=== PATIENT | male | born 1945 | race Caucasian/White ===

== ENCOUNTER 2019-02-21 17:55 | Emergency (ER) | payer OTHER ==
[~2019-02-21] VITALS: Ht 175.3 cm; Wt 102.1 kg
[2019-02-21 19:41] LABS: Basophils # (auto) 0.1 uL; Basophils % (auto) 1.5 % (0.0-2.0); Eosinophils # (auto) 0.3 uL; Eosinophils % (auto) 4.4 % (0.0-7.0); Hematocrit 41.7 % (41.0-53.0); Hemoglobin 13.8 g/dL (13.5-17.5); Lymphocytes # (auto) 2.1 uL; Lymphocytes % (auto) 27.7 % (10.0-50.0); Mean Corpuscular Hemoglobin 29.5 pg (28.0-32.0); Mean Corpuscular Volume 89.4 fL (80.0-100.0); Monocytes # (auto) 0.7 uL; Monocytes % (auto) 9.4 % (0.0-12.0); Neutrophils # (auto) 4.2 uL; Platelet Count (auto) 356 10^3/uL (140-450); Red Blood Cells 4.67 10^6/uL (4.5-5.90); Red Cell Distribution Width 13.9 % (11.8-14.3); White Blood Cell 7.4 10^3/uL (4.4-10.8)
[2019-02-21 19:51] LABS: Albumin 3.2 g/dL (3.4-5.0); Calcium 8.9 mg/dL (8.5-10.1); Potassium 4.6 mmol/L (3.5-5.1)
[2019-02-21 19:55] LABS: BUN/Creatinine Ratio 22.3; Bilirubin, Total 0.2 mg/dL (0.2-1.0); Total Protein 7.5 g/dL (6.4-8.2)
[2019-02-21 21:42] VITALS: BP 124/79
[2019-02-21] MEDS ORDERED: BACITRACIN TOP OINT 1 UD PKG TOP ONE (21:45)
== END 2019-02-21 22:13 | disposition home or self-care (01) ==
LOC: ER 17:55
DX: T81.49XA Infection following a procedure, other surgical site, initial encounter (principal); L76.34 Postprocedural seroma of skin and subcutaneous tissue following other procedure; Y83.9 Surgical procedure, unspecified as the cause of abnormal reaction of the patient, or of later complication, without mention of misadventure at the time of the procedure; I10 Essential (primary) hypertension
CPT/HCPCS: 36415; 76881; 80053; 83605; 85025; 87040

== ENCOUNTER 2019-02-24 08:01 | Emergency (ER) | payer OTHER ==
[~2019-02-24] VITALS: Ht 175.3 cm; Wt 102.1 kg
[2019-02-24] MEDS ORDERED: cefTRIAXone W LIDOCAINE 1 GM IM IM ONE (10:30)
[2019-02-24] MEDS ORDERED: CLINDAMYCIN 600 MG/4 ML VL IM ONE (10:30)
[2019-02-24] MEDS ORDERED: cefTRIAXone SOD 1,000 MG VL ONE (11:26)
[2019-02-24 13:38] VITALS: BP 129/77
== END 2019-02-24 13:42 | disposition home or self-care (01) ==
LOC: ER 08:01
DX: L03.114 Cellulitis of left upper limb (principal); I48.91 Unspecified atrial fibrillation
CPT/HCPCS: 96372; 99283; J0696

== ENCOUNTER 2024-11-06 09:32 | Outpatient (CLI) | payer OTHER ==
[~2024-11-06] VITALS: Ht 175.3 cm; Wt 99.8 kg
[2024-11-06] MEDS ORDERED: ADENOSINE 90 MG/30 ML INJ IV ONE (10:54)
[2024-11-06] MEDS ORDERED: ADENOSINE 84 MG in GIVE UN-DILUTED 0 ML IV ONE (12:00)
== END 2024-11-06 17:00 | disposition home or self-care (01) ==
LOC: Rad HDHVI 09:32
PROVIDERS: ATTEND Internal Medicine Cardiovascular Disease
DX: I49.3 Ventricular premature depolarization (principal); I11.0 Hypertensive heart disease with heart failure; I50.33 Acute on chronic diastolic (congestive) heart failure; I48.91 Unspecified atrial fibrillation; R94.31 Abnormal electrocardiogram [ECG] [EKG]; E78.00 Pure hypercholesterolemia, unspecified; E11.40 Type 2 diabetes mellitus with diabetic neuropathy, unspecified; J44.9 Chronic obstructive pulmonary disease, unspecified; R07.89 Other chest pain; R00.2 Palpitations
CPT/HCPCS: 78452; 93017; A9500; J0153

== ENCOUNTER 2024-11-20 14:59 | Outpatient (CLI) | payer OTHER ==
[2024-11-20 15:53] LABS: Urine Protein, UAD 1+ (Negative)
[2024-11-20 15:56] LABS: Hematocrit 44.4 % (41.0-53.0); Hemoglobin 15.2 g/dL (13.5-17.5); Mean Corpuscular Hemoglobin 30.3 pg (28.0-32.0); Mean Corpuscular Volume 88.6 fL (80.0-100.0); Nucleated Red Blood Cells % 0.1 %
[2024-11-20 16:17] LABS: Alanine Aminotransferase 13 U/L (7-40); Albumin 4.2 g/dL (3.2-4.8); Alkaline Phosphatase 62 U/L (46-116); Anion Gap 10 (5-15); BUN/Creatinine Ratio 13.5 (10.0-20.0); Bilirubin, Direct 0.2 mg/dL (<0.3); Blood Urea Nitrogen 18 mg/dL (9-23); Calcium 10.0 mg/dL (8.7-10.4); Carbon Dioxide 26 mmol/L (20-31); Chloride 105 mmol/L (98-107); Cholesterol 100 mg/dL (< 200); Glucose 105 mg/dL (74-106); HDL Cholesterol 42 mg/dL (40-59); Potassium 4.6 mmol/L (3.5-5.1); Sodium 141 mmol/L (136-145); Total Protein 7.0 g/dL (5.7-8.2); Triglycerides 77 mg/dL (< 150)
[2024-11-20 16:18] LABS: Bilirubin, Total 0.5 mg/dL (0.2-1.0)
== END 2024-11-20 17:00 | disposition home or self-care (01) ==
LOC: LAB 14:59
PROVIDERS: ATTEND Internal Medicine Cardiovascular Disease
DX: C61 Malignant neoplasm of prostate (principal); I10 Essential (primary) hypertension; E11.9 Type 2 diabetes mellitus without complications; E55.9 Vitamin D deficiency, unspecified; D64.9 Anemia, unspecified; R00.2 Palpitations
CPT/HCPCS: 36415; 80048; 80061; 80076; 81003; 83036; 84153; 84403; 84443; 85025

== ENCOUNTER → 2024-12-05 | Outpatient (CLI) | payer OTHER ==
[~2024-12-05] MED LIST: IOHEXOL 350 MG/ML 100ML IJ ONE
[2024-12-05 13:35] VITALS: BP 146/69; PULSE 74; RESP 20; O2SAT 98
[2024-12-05 13:57] VITALS: BP 147/79; PULSE 92; RESP 20; O2SAT 98
--- NOTE | 2024-12-05 15:15 | DVH ---
Procedure: CT CHEST WITH CONTRAST Reason for study/Clinical History: SOB Comparison Study: None Exam Date: 12/05/2024 01:42 PM Radiation Dose Information: CT Dose: CTDI volume is 15.98 mGy. Dose-length product is 615.08 mGy*cm TECHNIQUE: After the uneventful administration of intravenous contrast intravenously, CT imaging was performed through the chest. Coronal and sagittal reformations were performed by the technologist. FINDINGS: Lower Neck: Visualized portions of the thyroid gland are unremarkable. Aorta and Vasculature: Normal caliber of thoracic aorta. Lymph Nodes: No enlarged intrathoracic lymph nodes. Mediastinum: Heart size is normal. There is no pericardial effusion. The esophagus is unremarkable. Lungs: No focal consolidation, pleural effusion or significant pneumothorax. No suspicious pulmonary nodule or mass. Musculoskeletal: No acute osseous abnormality. Upper abdomen: Limited portions of the upper abdomen are unremarkable. IMPRESSION: No evidence of acute intrathoracic abnormality identified. All CT scans at this medical facility are performed using dose modulation techniques as appropriate t o a performed exam including the following: Automated exposure control was utilized; adjustment of th e MA and/or KV according to patient size; and use of iterative reconstruction technique.
--- NOTE | 2024-12-05 15:16 | DVH ---
EXAM: CT CT R SHOULDER WO CONTRAST INDICATION: SHOULDER PAIN EXAM DATE: 12/05/2024 01:38 PM COMPARISON: None TECHNIQUE: Multiple axial CT images of the right shoulder were obtained using bone algorithm. Axial a nd coronal reformatting was done. Bone and soft tissue windows were reviewed. Coronal images are limited and do not include the entire right shoulder. Radiation Dose Information: CT Dose: CTDI volume is 26.03 mGy. Dose-length product is 533.59 mGy*cm Findings/Impression: There is no evidence of an acute fracture, dislocation, blastic, or lytic lesions. Moderate degenerative changes of the glenohumeral joint and humeral head. No radiopaque foreign bodies. No joint effusion or superficial soft tissue abnormalities.
== END | disposition home or self-care (01) ==
LOC: Rad HDHVI 13:04
PROVIDERS: ATTEND Internal Medicine Cardiovascular Disease
DX: M19.011 Primary osteoarthritis, right shoulder (principal); R06.02 Shortness of breath; M25.511 Pain in right shoulder
CPT/HCPCS: 71260; 73200; G0463; Q9967

== ENCOUNTER 2025-02-28 | Inpatient (IN) | payer OTHER ==
[~2025-02-28] VITALS: Ht 175.3 cm; Wt 99.2 kg
[2025-02-28 00:35] LABS: Hematocrit 39.6 % (41.0-53.0); Hemoglobin 13.3 g/dL (13.5-17.5); Mean Corpuscular Hemoglobin 29.6 pg (28.0-32.0); Mean Corpuscular Volume 88.3 fL (80.0-100.0); Nucleated Red Blood Cells % 0.0 %
--- NOTE | 2025-02-28 00:43 | ECG ---
[facility] Test Date: 2025-02-28 Test Time: 00:07:27 Pat Name: HUNTER ALARCON Department: Room: 0220T Gender: M Zoo Director: ALINE : 1945 Requested By: SNEHAL NANCE Order Number: [id number] Reading MD: Rahul Mustafa Measurements Intervals [place] Rate: 106 P: 0 TX: 0 QRS: 79 QRSD: 77 T: -55 QT: 289 QTc: 384 Interpretive Statements Incomplete analysis due to missing data in precordial lead(s) Atrial fibrillation Borderline repolarization abnormality Baseline wander in lead(s) V2 Missing lead(s): V4 Electronically Signed On 03-04-2025 14:23:33 PDT by Rahul Mustafa Please click the below link to view image of tracing.
[2025-02-28 01:00] LABS: Chloride 103 mmol/L (98-107); Potassium 4.4 mmol/L (3.5-5.1)
[2025-02-28 01:01] LABS: Anion Gap 11 (5-15); Carbon Dioxide 22 mmol/L (20-31)
[2025-02-28 01:02] LABS: Calcium 9.2 mg/dL (8.7-10.4)
--- NOTE | 2025-02-28 01:04 | DVH ---
CHEST RADIOGRAPH Indication: cp Technique: Single frontal view of the chest was obtained COMPARISON: CT CHEST WITH CONTRAST on DOS: 12/05/24, NM CARDIOLITE W/O TREADMILL on DOS: 11/06/24, US E CHO 2D MODE CARDIAC DOP on DOS: 10/31/24 FINDINGS: Lines and Tubes: None Lungs: Small right pleural effusion. Minimal Bibasilar pulmonary airspace disease. No evidence of fo jaja consolidation. No pneumothorax. Cardiomediastinal contours: Unremarkable Bones: Unremarkable. Left glenohumeral and acromion hardware status post arthroplasty. IMPRESSION: 1. Small right pleural effusion. 2. Minimal bibasilar pulmonary airspace disease.
[2025-02-28 01:07] LABS: BUN/Creatinine Ratio 18.2 (10.0-20.0); Blood Urea Nitrogen 22 mg/dL (9-23)
[2025-02-28 01:18] LABS: Glucose 131 mg/dL (74-106); Sodium 136 mmol/L (136-145)
--- NOTE | 2025-02-28 01:21 | ED.PDOC ---
HPI Comments 80 year old male presents to the ED with a chief compliant of chest pain onset 1 hour prior to ED arrival. Patient states he began experiencing constant and pounding, RT sided chest pain for the past hour radiates to RT shoulder, RT arm. Patient states he has experienced RT shoulder pain for the past 5 years, after receiving COVID vaccination. Patient has an appointment with his manager new product yesterday, was cancelled. PMhx a-fib. Denies shortness of breath, dizziness, headache, fever, chills, cough, cold, congestion. No other symptoms or modifying factors present at this time. Chief Complaint: Chest Pain Time Seen by MD: 00:50 Primary Care Provider: XIOMARA King Notes: Medications, Allergies Allergies: Coded Allergies: NO KNOWN ALLERGIES (Unverified , 02/21/19) Home Meds Reported Medications Baclofen (Baclofen) 20 Mg Tab, 10 MG PO BID, TAB 02/28/25 Metoprolol Succinate (Metoprolol Succinate Er) 25 Mg Tab, 1 TAB PO DAILY 02/28/25 Tamsulosin Hcl (Tamsulosin Hcl) 0.4 Mg Cap, 2 CAP PO DAILY 02/28/25 Digoxin (Digoxin) 250 Mcg Tab, 1 TAB PO DAILY 02/28/25 Finasteride (Finasteride) 5 Mg Tab, 1 TAB PO DAILY 02/28/25 Information Source: Patient Mode of Arrival: Ambulatory Severity: Moderate Timing: Hours Duration: Since onset Prehospital treatment: None Location: Chest (R) Radiation: Shoulder (R), Arm (R) Quality: Other (pounding) Onset: At Rest Cardiac Risk Factors: None PE Risk Factors: None History of: None Modifying Factors: Nothing Vital Signs Vital Signs Date Time Temp Pulse Resp B/P (MAP) Pulse Ox O2 Delivery O2 Flow Rate FiO2 02/28/25 03:11 107 02/28/25 00:02 98.0 18 127/55 93 98.0 Physical Exam PHYSICAL EXAM: General: Awake, alert and oriented. No acute distress. Skin: Skin in warm, dry and intact. Appropriate color for ethnicity. HEENT: The head is normocephalic and atraumatic. Conjunctivae are clear without exudates or hemorrhage. Sclera is non-icteric. EOM are intact. No signs of nystagmus. Eyelids are normal in appearance without swelling or lesions. Oral mucosa is pink and moist Neck: The neck is supple with normal range of motion. No JVD. Cardiac: Heart rate and rhythm are normal. No murmurs, gallops, or rubs are auscultated. Respiratory: No signs of respiratory distress. Lung sounds are clear in all lobes bilaterally without rales, rhonchi, or wheezes. Abdominal: Abdomen is soft, non-tender without distention, guarding or rigidity. Bowel sounds are present and normoactive in all four quadrants. Extremities: Upper and lower extremities are atraumatic in appearance without de formity or edema. Neurological: The patient is awake, alert and oriented to person, place, and time with normal speech. Speech is clear. There is no facial asymmetry. Psychiatric: Appropriate mood and affect. Good judgement and insight. Review of Systems: REVIEW OF SYSTEMS: As stated in HPI Past Medical History PAST MEDICAL HISTORY: AFIB Surgical History: Denies all surgeries Family History Family History: Reviewed,noncontributory to illness Social History Smoker: Non-Smoker Alcohol: Denies ETOH Use Drugs: Denies Drug Use Lives In: Home EKG EKG : Pulse Rate (adult): 106 Cardiac Rhythm: Afib Was a procedure done? Was a procedure done?: No CP Differential Dx Differential Diagnosis: Other (Differential diagnoses considered include acute ischemic coronary syndrome, aortic dissection, cardiac tamponade, mediastinitis, pulmonary embolus, pneumothorax, tension pneumothorax, esophageal rupture, coronary artery vasospasm, myocarditis, pericarditis, pneumonia, pulmonary edema, esophageal tear, pancreatitis, aortic stenosis, dilated cardiomyopathy, hypertrophic cardiomyopathy, mitral valve prolapse, malignancy, pleuritis, pneumomediastinum, primary pulmonary hypertension, cholecystitis, esophageal spasm, esophagus, gastritis, GERD, peptic ulcer disease, costochondritis, fibromyalgia, rib fracture, herpes zoster, radicular syndromes, thoracic outlet syndrome, somatization.) X-Ray, Labs, Meds, VS Vital Signs Date Time Temp Pulse Resp B/P (MAP) Pulse Ox O2 Delivery O2 Flow Rate FiO2 02/28/25 03:11 107 02/28/25 03:01 85 02/28/25 01:33 111 02/28/25 01:21 106 02/28/25 00:07 106 02/28/25 00:02 98.0 114 18 127/55 93 98.0 Lab Test 02/28/25 03:23 02/28/25 01:30 02/28/25 00:24 Range/Units Troponin I High Sensitivity 9 10 9 </=54 ng/L White Blood Count 15.3 H 4.4-10.8 10^3/uL Red Blood Count 4.49 L 4.5-5.90 10^6/uL Hemoglobin 13.3 L 13.5-17.5 g/dL Hematocrit 39.6 L 41.0-53.0 % Mean Corpuscular Volume 88.3 80.0-100.0 fL Mean Corpuscular Hemoglobin 29.6 28.0-32.0 pg Mean Corpuscular Hemoglobin Concent 33.5 32.0-36.0 g/dL Red Cell Distribution Width 14.9 H 11.8-14.3 % Platelet Count 183 140-450 10^3/uL Mean Platelet Volume 7.0 6.9-10.8 fL Neutrophils (%) (Auto) 77.2 37.0-80.0 % Lymphocytes (%) (Auto) 8.4 L 10.0-50.0 % Monocytes (%) (Auto) 13.9 H 0.0-12.0 % Eosinophils (%) (Auto) 0.0 0.0-7.0 % Basophils (%) (Auto) 0.5 0.0-2.0 % Neutrophils # (Auto) 11.8 H 1.6-8.6 10 ^3/uL Lymphocytes # (Auto) 1.3 0.4-5.4 10 ^3/uL Monocytes # (Auto) 2.1 H 0-1.3 10 ^3/uL Eosinophils # (Auto) 0 0-0.8 10 ^3/uL Basophils # (Auto) 0.1 0-0.2 10 ^3/uL Nucleated Red Blood Cells 0.0 % Sodium Level 136 136-145 mmol/L Potassium Level 4.4 3.5-5.1 mmol/L Chloride Level 103 98-107 mmol/L Carbon Dioxide Level 22 20-31 mmol/L Anion Gap 11 5-15 Blood Urea Nitrogen 22 9-23 mg/dL Creatinine 1.21 0.700-1.30 mg/dL Glomerular Filtration Rate Calc 61 >90 mL/min BUN/Creatinine Ratio 18.2 10.0-20.0 Serum Glucose 131 H 74-106 mg/dL Calcium Level 9.2 8.7-10.4 mg/dL B-Type Natriuretic Peptide 185.86 0-100 pg/mL Current Medications Medications (Trade) Dose Ordered Sig/Jenna Route Start Time Stop Time Status Last Admin Ceftriaxone Sodium 50 ml @ 100 mls/hr ONCE ONCE IV 02/28/25 04:15 02/28/25 04:44 DC 02/28/25 07:55 [place] [id number] Ph: [phone] DIAGNOSTIC IMAGING Diagnostic Imaging Report : [id number] Signed PATIENT: HUNTER ALARCON ACCT: [id number] UNIT: [id number] : 1945 LOC: ER ROOM / BED: / AGE / SEX: 80 / M ADM STATUS: REG ER SERVICE ORDERING PHYSICIAN: SNEHAL NANCE MD PROCEDURE(s): CXR1 - CHEST XRAY 1 VIEW REASON: cp ORDER NUMBER(s): [id number], ACCESSION NUMBER(s): [id number] CHEST RADIOGRAPH Indication: cp Technique: Single frontal view of the chest was obtained COMPARISON: CT CHEST WITH CONTRAST on DOS: 12/05/24, NM CARDIOLITE W/O TREADMILL on DOS: 11/06/24, US ECHO 2D MODE CARDIAC DOP on DOS: 10/31/24 FINDINGS: Lines and Tubes: None Lungs: Small right pleural effusion. Minimal Bibasilar pulmonary airspace disease. No evidence of focal consolidation. No pneumothorax. Cardiomediastinal contours: Unremarkable Bones: Unremarkable. Left glenohumeral and acromion hardware status post arthroplasty. IMPRESSION: 1. Small right pleural effusion. 2. Minimal bibasilar pulmonary airspace disease. ATED BY: DARIAN LANE MD DICTATED DATE/TIME: 02/28/25100 SIGNED BY: DARIAN LANE MD SIGNED DATE/TIME: 02/28/25100 CC: Time of 1ST Reevaluation: 01:20 Reevaluation 1ST: Unchanged Patient Education/Counseling: Diagnosis, Treatment, Need For Follow Up Family Education/Counseling: No Family Present SEPSIS Sepsis Screen Date sepsis recognized/suspect: Feb 28, 2025 Time Sepsis recognized/suspect: 0005 Recent Procedure: No On Antibiotic Therapy: No Respiratory Rate >20: No Heart Rate >90: No Temp<36 C (96.8 F) or >38.3 C: No SBP <90 or MAP <65 mmHG: No New Acute Mental Status Change: No Is the patient on CPAP, BIPAP,: No Physician Orders Chest Xray 1 View (02/28/25 00:15) Vital Signs Q1HR (02/28/25 00:15) Saline Lock (02/28/25 00:15) Oil Recovery Operator (02/28/25 ) Ceftriaxone 1gm/50ml (Rocephin) (02/28/25 09:00) Admit (02/28/25 06:52) Allergies (02/28/25 06:52) Code Status (02/28/25 06:52) Ondansetron Hcl (Zofran) (02/28/25 07:00) Enoxaparin Sodium (Lovenox) (02/28/25 10:00) Complete Blood Count (03/01/25 04:00) Comprehensive Metabolic Panel (03/01/25 04:00) Cardiac Diet-2gna,Lofat,Lochol (02/28/25 Breakfast) Echo 2d Mode Cardiac Dop (02/28/25 06:52) Acetaminophen Tablet (Tylenol Tablet) (02/28/25 07:00) Nitroglycerin Sublingual (Ntrostat Subli (02/28/25 07:00) Morphine Sulfate Injection (02/28/25 07:00) Stat Ekg For Chest Pain (02/28/25 06:52) Notify Md Of Changes From Base (02/28/25 06:52) Firearms Assembly Supervisor For 24 Hours (02/28/25 06:52) Emergency Dysrhythmia Protocol (02/28/25 06:52) Rhythm Strips Once Every Shift (02/28/25 06:52) Oxygen By Nasal Cannula (02/28/25 06:52) Vital Signs Date Time Temp Pulse Resp B/P (MAP) Pulse Ox O2 Delivery O2 Flow Rate FiO2 02/28/25 03:11 107 02/28/25 03:01 85 02/28/25 01:33 111 02/28/25 01:21 106 02/28/25 00:07 106 02/28/25 00:02 98.0 114 18 127/55 93 98.0 Laboratory Tests Test 02/28/25 00:24 White Blood Count 15.3 10^3/uL (4.4-10.8) H Departure 1 Departure Time of Disposition: 04:04 Impression: Primary Impression: Chest pain Disposition: ADMITTED INPATIENT Condition: Stable Comments MDM: 80-year-old male with right-sided chest pain multiple risk factors. We will admit for suspected pneumonia and ongoing chest pain Extensive evaluation was performed in attempt to identify or rule out: (See differential diagnosis section) The following tests were ordered, and results were reviewed by me and discussed with patient: (See diagnostic results section) The following test were independently interpreted by me: EKG Decision regarding hospitalization or escalation of hospital level of care: Risk and benefits of admission for further treatment of patient's condition was considered. Due to patient's current clinical condition, high risk of decline and poor outcome if discharged and need for further inpatient management and monitoring, patient will be admitted to the hospital. Critical Care Note Critical Care Time?: No Stability Stability form required: No Heart Score Heart Score: Heart Score Response (Comments) Value History N/A 0 EKG N/A 0 Age N/A 0 Risk Factors N/A 0 Troponin N/A 0 Total 0 I personally scribed for SNEHAL NANCE MD ([email or web address]) on 02/28/25 at 01:21. Electronically submitted by Lay Coker ([email or web address]). SNEHAL NANCE MD Feb 28, 2025 01:21
--- NOTE | 2025-02-28 01:35 | ECG ---
[facility] Test Date: 2025-02-28 Test Time: 01:33:54 Pat Name: HUNTER ALARCON Department: Room: 0220T Gender: M Folding Machine Tender: ALINE : 1945 Requested By: SNEHAL NNACE Order Number: [id number] Reading MD: Rahul Mustafa Measurements Intervals [place] Rate: 111 P: 0 DC: 0 QRS: 88 QRSD: 80 T: -63 QT: 277 QTc: 377 Interpretive Statements Incomplete analysis due to missing data in precordial lead(s) Atrial fibrillation Borderline right axis deviation Borderline repolarization abnormality Missing lead(s): V4 Electronically Signed On 03-04-2025 14:24:09 PDT by Rahul Mustafa Please click the below link to view image of tracing.
--- NOTE | 2025-02-28 03:12 | ECG ---
[facility] Test Date: 2025-02-28 Test Time: 03:11:31 Pat Name: HUNTER ALARCON Department: Room: 0220T Gender: M Senior Product Consultant: JAMILAH : 1945 Requested By: SNEHAL NANCE Order Number: [id number] Reading MD: Rahul Mustafa Measurements Intervals [place] Rate: 107 P: 0 ME: 0 QRS: 84 QRSD: 78 T: -56 QT: 317 QTc: 423 Interpretive Statements Incomplete analysis due to missing data in precordial lead(s) Atrial fibrillation Borderline right axis deviation Nonspecific T abnormalities, diffuse leads Missing lead(s): V4 Electronically Signed On 03-04-2025 14:24:54 PDT by Rahul Mustafa Please click the below link to view image of tracing.
[2025-02-28] MEDS ORDERED: ACETAMINOPHEN 325 MG TAB PO PRN (07:00)
[2025-02-28] MEDS ORDERED: ONDANSETRON HCL 4 MG/2 ML VIAL IV PRN (07:00)
[2025-02-28] MEDS ORDERED: MORPHINE SULFATE INJ 2 MG/ml SYRG IV PRN (07:00)
[2025-02-28] MEDS ORDERED: NITROGLYCERIN 0.4 MG SL TAB SL PRN (07:00)
--- NOTE | 2025-02-28 07:06 | DVHHP2 ---
History of Present Illness Reason for Visit: Chest pain History of Present Illness Mitchell Guerrero is a 80 year old male with past medical history of arthritis, left hip surgery, bilateral shoulder surgery, and AFib who presents to the ED with chest pain x2 days which has worsened, reports that it radiates to the right shoulder and arm. Patient does report that the pain had started with the throbbing in his chest ever since he received the COVID vaccine 5 years ago. Patient also reports that he has chronic pain in his shoulder for the last 5 years after receiving the COVID vaccine. Patient states that he has a epic beacon analyst, Dr. Longo. He also endorses that he is compliant with his medications. Patient also reports that he was supposed to see his epic beacon analyst yesterday but canceled. Patient reports that his chest pain is 8/10 throbbing and constant. He reports that there are no alleviating factors. He also endorses that he lives at home alone, does not use any DMEs. Patient denies any recent travels, recent sick contacts, recent ingestion of spoiled food, recent trauma or injury, shortness of breath, fever, chills, lightheadedness, weakness, dizziness, abdominal pain, nausea, vomiting, diarrhea, or urinary symptoms. Cardiovascular: AFIB Past Medical History Arthritis Past Surgical History: Other (Left hip surgery and bilateral shoulder surgery) Family History: None Smoke: No ALCOHOL: occassional Drugs: None Lives: Alone Domestic Violence: Neg Review of Systems Cardiovascular: Chest Pain Allergies: Coded Allergies: NO KNOWN ALLERGIES (Unverified , 02/21/19) Exam Vital Signs Vital Signs Date Time Temp Pulse Resp B/P (MAP) Pulse Ox O2 Delivery O2 Flow Rate FiO2 02/28/25 03:11 107 02/28/25 00:02 98.0 18 127/55 93 98.0 General Appearance: Alert, Oriented X3, Cooperative, No acute distress HEENT: Atraumatic, PERRLA, EOMI, Mucous membr. moist/pink Respiratory: Normal air movement Cardiovascular: Normal S1, Normal S2 Abdominal: Normal bowel sounds, Soft Extremities: Normal pulses Neuro: Normal gait, Normal speech, Strength at 5/5 X4 ext, Normal tone, Sensation intact Psych/Mental Status: Mental status NL, Mood NL Labs/Xrays Labs Test 02/28/25 03:23 02/28/25 00:24 Range/Units Troponin I High Sensitivity 9 </=54 ng/L White Blood Count 15.3 H 4.4-10.8 10^3/uL Red Blood Count 4.49 L 4.5-5.90 10^6/uL Hemoglobin 13.3 L 13.5-17.5 g/dL Hematocrit 39.6 L 41.0-53.0 % Mean Corpuscular Volume 88.3 80.0-100.0 fL Mean Corpuscular Hemoglobin 29.6 28.0-32.0 pg Mean Corpuscular Hemoglobin Concent 33.5 32.0-36.0 g/dL Red Cell Distribution Width 14.9 H 11.8-14.3 % Platelet Count 183 140-450 10^3/uL Mean Platelet Volume 7.0 6.9-10.8 fL Neutrophils (%) (Auto) 77.2 37.0-80.0 % Lymphocytes (%) (Auto) 8.4 L 10.0-50.0 % Monocytes (%) (Auto) 13.9 H 0.0-12.0 % Eosinophils (%) (Auto) 0.0 0.0-7.0 % Basophils (%) (Auto) 0.5 0.0-2.0 % Neutrophils # (Auto) 11.8 H 1.6-8.6 10 ^3/uL Lymphocytes # (Auto) 1.3 0.4-5.4 10 ^3/uL Monocytes # (Auto) 2.1 H 0-1.3 10 ^3/uL Eosinophils # (Auto) 0 0-0.8 10 ^3/uL Basophils # (Auto) 0.1 0-0.2 10 ^3/uL Nucleated Red Blood Cells 0.0 % Sodium Level 136 136-145 mmol/L Potassium Level 4.4 3.5-5.1 mmol/L Chloride Level 103 98-107 mmol/L Carbon Dioxide Level 22 20-31 mmol/L Anion Gap 11 5-15 Blood Urea Nitrogen 22 9-23 mg/dL Creatinine 1.21 0.700-1.30 mg/dL Glomerular Filtration Rate Calc 61 >90 mL/min BUN/Creatinine Ratio 18.2 10.0-20.0 Serum Glucose 131 H 74-106 mg/dL Calcium Level 9.2 8.7-10.4 mg/dL B-Type Natriuretic Peptide 185.86 0-100 pg/mL CHEST RADIOGRAPH Indication: cp Technique: Single frontal view of the chest was obtained COMPARISON: CT CHEST WITH CONTRAST on DOS: 12/05/24, NM CARDIOLITE W/O TREADMILL on DOS: 11/06/24, US ECHO 2D MODE CARDIAC DOP on DOS: 10/31/24 FINDINGS: Lines and Tubes: None Lungs: Small right pleural effusion. Minimal Bibasilar pulmonary airspace disease. No evidence of focal consolidation. No pneumothorax. Cardiomediastinal contours: Unremarkable Bones: Unremarkable. Left glenohumeral and acromion hardware status post arthroplasty. IMPRESSION: 1. Small right pleural effusion. 2. Minimal bibasilar pulmonary airspace disease. SEPSIS Sepsis Screen Date sepsis recognized/suspect: Feb 28, 2025 Time Sepsis recognized/suspect: 0005 Recent Procedure: No On Antibiotic Therapy: No Respiratory Rate >20: No Heart Rate >90: No Temp<36 C (96.8 F) or >38.3 C: No SBP <90 or MAP <65 mmHG: No New Acute Mental Status Change: No Is the patient on CPAP, BIPAP,: No Physician Orders Chest Xray 1 View (02/28/25 00:15) Vital Signs Q1HR (02/28/25 00:15) Saline Lock (02/28/25 00:15) Groundhand (02/28/25 ) Vital Signs Date Time Temp Pulse Resp B/P (MAP) Pulse Ox O2 Delivery O2 Flow Rate FiO2 02/28/25 03:11 107 02/28/25 03:01 85 02/28/25 01:33 111 02/28/25 01:21 106 02/28/25 00:07 106 02/28/25 00:02 98.0 114 18 127/55 93 98.0 Laboratory Tests Test 02/28/25 00:24 White Blood Count 15.3 10^3/uL (4.4-10.8) H Medications Medications Dose Ordered Sig/Jenna Route Start Time Stop Time Status Last Admin Dose Admin Aspirin 324 mg ONCE ONCE PO 02/28/25 01:45 02/28/25 01:46 DC 02/28/25 02:59 324 MG Assessment/Plan Assessment/Plan Assessment Chest pain Leukocytosis likely due to small right pleural effusion Alcohol use Obesity History of AFib History of arthritis History of left hip surgery History of bilateral shoulder surgery Plan Admit to tele ESR CRP Mag level Antiemetics Pain management IV antibiotics-ceftriaxone Aspirin + statin ACS workup Echo ordered UA UDS EKG Troponin noted negative x3 BNP COVID test Influenza test Diet Home medications reconciled -reports taking both digoxin and metoprolol DVT prophylaxis-Lovenox PUD prophylaxis-not indicated no history of GERD or GI bleed Discussed plan of care with patient nurse Counseled patient on lifestyle modifications, diet, and exercise Counseled patient on cessation of alcohol use [id number] Preventive counseling healthy eating habits, physical activity, and regular checkups CHADS Vasc score of 2-Lovenox Plan discussed with: Patient Date of Service: Feb 28, 2025 Billing Provider: GENEVA HOUGH Common Visit Codes: [id number] INP/OBS CARE (HIGH) Secondary Visit Codes: [id number] COUNSELING IND GENEVA HOUGH Feb 28, 2025 07:06
[2025-02-28 07:48] VITALS: PULSE 104; RESP 16; O2SAT 94
[2025-02-28 07:51] LABS: Triglycerides 75 mg/dL (< 150)
[2025-02-28 07:53] LABS: Cholesterol 159 mg/dL (< 200); HDL Cholesterol 58 mg/dL (40-59)
[2025-02-28 08:34] LABS: Magnesium 2.1 mg/dL (1.6-2.6)
[2025-02-28] MEDS ORDERED: METO25TA93 PO (08:38)
[2025-02-28] MEDS ORDERED: DIGO0.25 PO (08:38)
[2025-02-28] MEDS ORDERED: TAMS0.4C39 PO (08:38)
[2025-02-28] MEDS ORDERED: FIN5T PO (08:38)
[2025-02-28 09:00] VITALS: BP 119/73; PULSE 94; RESP 18; TEMP 98.2; O2SAT 95
[2025-02-28] MEDS ORDERED: PATIENTS OWN MEDICATION (Metoprolol Succinate (Metoprolol Succinate Er) 1 TAB) PO SCH (10:00)
[2025-02-28] MEDS ORDERED: DIGOXIN PO SCH (10:00)
[2025-02-28 10:39] LABS: COVID19 ANTIGEN SOFIA FIA NEGATIVE (NEGATIVE)
[2025-02-28] MEDS: TAMSULOSIN HYDROCHLORIDE 0.4 MG CAP PO SCH (11:30)
[2025-02-28] MEDS: FINASTERIDE 5 MG TAB PO SCH (11:30)
[2025-02-28] MEDS: ENOXAPARIN SOD 40 MG/0.4 ML SYRINGE SC SCH (11:31)
[2025-02-28] MEDS: METOPROLOL SUCCINATE XL 50 MG TAB PO SCH (11:33)
[2025-02-28] MEDS: DIGOXIN 0.125 MG TAB PO SCH (11:33)
[2025-02-28 13:00] VITALS: BP 110/58; PULSE 92; RESP 18; TEMP 98.4; O2SAT 92
[2025-02-28 14:37] VITALS: PULSE 109
[2025-02-28 16:01] LABS: Amphetamine Screen, Urine Neg (NEGATIVE); Barbiturate Scree,Urine Neg (NEGATIVE); Benzodiazephine Screen, Urine Neg (NEGATIVE); Cannabinoid Screen, Urine Neg (NEGATIVE); Cocaine Screen, Urine Neg (NEGATIVE); Opiate Scree,Urine Neg (NEGATIVE); Phencyclidine Screen, Urine Neg (NEGATIVE)
[2025-02-28 16:04] LABS: Urine Protein, UAD Negative (Negative)
[2025-02-28 16:07] LABS: INR 1.16 (0.9-1.15); Partial Thromboplastin Time 28.8 SEC (24.5-34.5); Prothrombin Time 12.1 sec (9.3-11.8)
[2025-02-28 17:16] VITALS: BP 143/82; PULSE 103; RESP 20; TEMP 98.2; O2SAT 95
[2025-02-28] MEDS ORDERED: BACL20TA PO (18:06)
[2025-02-28] MEDS: HYDROcodone-ACET 5/325MG TAB PO PRN (20:56)
[2025-02-28 21:00] VITALS: BP 124/84; PULSE 104; RESP 22; TEMP 98.3; O2SAT 97
[2025-02-28] MEDS: MELATONIN 5 MG TAB PO ONE (21:03)
[2025-03-01] VITALS (7 sets, daily range): BP systolic 108–140; BP diastolic 57–88; PULSE 84–109; RESP 19–21; TEMP 97.4–98.9; O2SAT 93–97
[2025-03-01 07:32] LABS: Hematocrit 37.6 % (41.0-53.0); Hemoglobin 12.6 g/dL (13.5-17.5); Mean Corpuscular Hemoglobin 29.6 pg (28.0-32.0); Mean Corpuscular Volume 88.1 fL (80.0-100.0); Nucleated Red Blood Cells % 0.0 %
[2025-03-01 08:12] LABS: Alanine Aminotransferase 18 U/L (7-40); Alkaline Phosphatase 71 U/L (46-116); Anion Gap 9 (5-15); BUN/Creatinine Ratio 19.4 (10.0-20.0); Calcium 8.9 mg/dL (8.7-10.4); Carbon Dioxide 27 mmol/L (20-31); Chloride 100 mmol/L (98-107); Potassium 4.5 mmol/L (3.5-5.1); Sodium 136 mmol/L (136-145); Total Protein 6.6 g/dL (5.7-8.2)
[2025-03-01 08:13] LABS: Albumin 3.6 g/dL (3.2-4.8); Bilirubin, Total 0.7 mg/dL (0.2-1.0); Blood Urea Nitrogen 25 mg/dL (9-23); Glucose 122 mg/dL (74-106)
--- NOTE | 2025-03-01 14:24 | DVHPN2 ---
Subjective Patient continues to report having right shoulder pain, right lower rib pain Reviewed: Care Plan, H&P, Labs, Medications, Previous Orders Changes from previous H/P or p: No Changes General: Per HPI Cardiovascular: Chest Pain Objective Vitals Vital Signs Date Time Temp Pulse Resp B/P (MAP) Pulse Ox O2 Delivery O2 Flow Rate FiO2 03/01/25 13:00 98.0 100 19 108/63 (78) 93 98.0 02/28/25 14:37 Room Air* 0 21 Intake/Output Intake and Output 03/01/25 07:00 Intake Total 500 ml Balance 500 ml Intake Oral 500 ml # Voids 2 General Appearance: Alert, Oriented X3, Cooperative, mild distress HEENT: Atraumatic, PERRLA Neck: Carotid [place] Cardiovascular: Normal S1, Normal S2, Other (Atrial fibrillation) Abdomen: Normal bowel sounds, Soft, No tenderness Genitourinary: No Apparent Abnormalities Musculoskeletal: Normal sensory function, Normal motor function Neuro: Normal gait, Normal speech Skin: Dry, Intact Psych/Mental Status: Mental status NL, Mood NL Medications Current Medications Medications Dose Ordered Sig/Jenna Route Start Time Stop Time Status Last Admin Dose Admin Ceftriaxone Sodium 50 ml @ 100 mls/hr DAILY@09 IV 02/28/25 09:00 03/01/25 08:12 100 MLS/HR Ondansetron HCl 4 mg Q4HP PRN IV 02/28/25 07:00 Enoxaparin Sodium 40 mg DAILY SC 02/28/25 10:00 03/01/25 10:18 40 MG Acetaminophen 650 mg Q6HP PRN PO 02/28/25 07:00 Nitroglycerin 0.4 mg Q5MINP PRN SL 02/28/25 07:00 Morphine Sulfate 2 mg Q30M PRN IV 02/28/25 07:00 Finasteride 5 mg DAILY PO 02/28/25 10:00 03/01/25 10:18 5 MG Tamsulosin HCl 0.4 mg DAILY PO 02/28/25 10:00 03/01/25 10:17 0.4 MG Patient Own Medication 1 tab DAILY PO 02/28/25 10:00 UNV Patient Own Medication 1 tab DAILY PO 02/28/25 10:00 UNV Metoprolol Succinate 25 mg DAILY PO 02/28/25 10:00 03/01/25 10:17 25 MG Digoxin 0.25 mg DAILY PO 02/28/25 10:00 03/01/25 10:17 0.25 MG Acetaminophen/ Hydrocodone Bitart 1 tab Q6HPRN PRN PO 02/28/25 20:45 03/01/25 08:13 1 TAB Laboratory Results Laboratory Tests 03/01/25 06:57 Chemistry Test 03/01/25 06:57 Albumin 3.6 g/dL (3.2-4.8) Calcium Level 8.9 mg/dL (8.7-10.4) Total Protein 6.6 g/dL (5.7-8.2) Coagulation Test 02/28/25 14:38 Prothrombin Time 12.1 sec (9.3-11.8) H Prothrombin Time INR 1.16 (0.9-1.15) H Activated Partial Thromboplast Time 28.8 SEC (24.5-34.5) D-Dimer, Quantitative 6.99 mg/L FEU (0.0-0.49) H LFT Test 03/01/25 06:57 Alanine Aminotransferase (ALT) 18 U/L (7-40) Alkaline Phosphatase 71 U/L (46-116) Aspartate Amino Transferase (AST) 23 U/L (13-40) Total Bilirubin 0.7 mg/dL (0.2-1.0) Urinalysis Test 02/28/25 15:30 Urine Color Colorless (Yellow) Urine Clarity Clear (Clear) Urine pH 5.5 (5.0-9.0) Urine Specific [place] 1.004 (1.001-1.035) Urine Protein Negative (Negative) Urine Ketones Negative (Negative) Urine Blood Negative /uL (Negative) Urine Nitrite Negative (Negative) Urine Bilirubin Negative (Negative) Urine Urobilinogen Normal mg/dL (Negative) Urine Leukocyte Esterase Negative /uL (Negative) Urine RBC <1 /hpf (0 - 3) Urine Microscopic WBC < 1 /HPF (0-3) Urine Squamous Epithelial Cells None seen /hpf (<5) Urine Bacteria Few /hpf (None Seen) H Urine Glucose Normal mg/dL (Normal) Microbiology Microbiology Date/Time Source Procedure Growth Status 02/28/25 15:30 Voided Urine Urine Culture - Preliminary Resulted Labs and/or images reviewed: Labs reviewed by me, Image(s) reviewed by me Assessment/Plan Assessment/Plan Impression: -chest pain -leukocytosis -obesity -right shoulder pain -rule out pulmonary embolism, DVT -atrial fibrillation -primary hypertension -dyslipidemia -history of CVA Plan: -12 lead ECG revealing atrial fibrillation. Troponins negative. Elevated D- dimer, 6.99 -CT angiogram of the chest, CT of the abdomen and pelvis -DVT study -check RA factor, LDH, DANELLE - consult quality control supervisor, Dr. Longo -consider full-dose anticoagulation given history of stroke, atrial fibrillation -pain management -continue rate control with metoprolol -repeat labs in a.m. Total time spent with patient discussing and formulating plan of care: 35 minutes. This medical document was created using an electronic medical record system with [employer] dictation system. Although this document has been carefully reviewed, there may still be some phonetic and typographical errors. These areas are purely typographical due to imperfections of the software programs, and do not reflect any compromise in the patient's medical care. Plan discussed with: Patient, Daughter, Son, Other (RN) My Orders Orders - DINO JORDAN NP Procedure Category Date Status Time Blood Culture WILLEM 02/28/25 In Process 14:20 Urine Bacterial WILLEM 02/28/25 In Process Culture 14:20 Bilat Lower Dvt US 03/01/25 Logged 13:12 Rheumatoid Arthritis LAB 03/01/25 Logged Factor 13:12 Danelle; Comprehensive LAB 03/01/25 Logged Panel 13:12 *Consult Dr. Longo CONS 03/01/25 Transmitted [place] 13:12 Ct Chest/Ab/Pl W Con- CT 03/01/25 Logged Iv Only 14:03 Date of Service: Mar 01, 2025 Billing Provider: DINO JORDAN NP Common Visit Codes: [id number] INP/OBS CARE(HIGH) DINO JORDAN NP Mar 01, 2025 14:24
--- NOTE | 2025-03-01 14:56 | DVHPN2 ---
Progress Note - Dictate Date Seen: Mar 01, 2025 Medical Necessity Reason Pt with a Central, PICC or Fol: No Subjective PT WITH HX OF CHEST PAIN TROPONIN NEGATIVE ECG NEGATIVE BNP NL ECHO EF >55% 10/31 STRESS CARDIOLITE NORMAL PERFUSION 11/30 HX OF AFIB CVA NOW WITH SHOULDER PAIN LEUKOCYTOSIS METABOLIC SYNDROME vital signs Vital Sign Date Time Temp Pulse Resp B/P (MAP) Pulse Ox O2 Delivery O2 Flow Rate FiO2 03/01/25 13:00 98.0 100 19 108/63 (78) 93 98.0 02/28/25 14:37 Room Air* 0 21 Total Intake and Output 02/28/25 02/28/25 03/01/25 15:00 23:00 07:00 Intake Total 100 ml 400 ml Balance 100 ml 400 ml medications Current Medications Medications Dose Ordered Sig/Jenna Route Start Time Stop Time Status Last Admin Dose Admin Ceftriaxone Sodium 50 ml @ 100 mls/hr DAILY@09 IV 02/28/25 09:00 03/01/25 08:12 100 MLS/HR Ondansetron HCl 4 mg Q4HP PRN IV 02/28/25 07:00 Enoxaparin Sodium 40 mg DAILY SC 02/28/25 10:00 03/01/25 10:18 40 MG Acetaminophen 650 mg Q6HP PRN PO 02/28/25 07:00 Nitroglycerin 0.4 mg Q5MINP PRN SL 02/28/25 07:00 Morphine Sulfate 2 mg Q30M PRN IV 02/28/25 07:00 Finasteride 5 mg DAILY PO 02/28/25 10:00 03/01/25 10:18 5 MG Tamsulosin HCl 0.4 mg DAILY PO 02/28/25 10:00 03/01/25 10:17 0.4 MG Patient Own Medication 1 tab DAILY PO 02/28/25 10:00 UNV Patient Own Medication 1 tab DAILY PO 02/28/25 10:00 UNV Metoprolol Succinate 25 mg DAILY PO 02/28/25 10:00 03/01/25 10:17 25 MG Digoxin 0.25 mg DAILY PO 02/28/25 10:00 03/01/25 10:17 0.25 MG Acetaminophen/ Hydrocodone Bitart 1 tab Q6HPRN PRN PO 02/28/25 20:45 03/01/25 08:13 1 TAB laboratory and microbiology Laboratory Tests 03/01/25 06:57 Test 03/01/25 06:57 Range/Units Serum Glucose 122 H 74-106 mg/dL Problem List HX OF CHEST PAIN TROPONIN NEGATIVE ECG NEGATIVE BNP NL ECHO EF >55% 10/31 STRESS CARDIOLITE NORMAL PERFUSION 11/30 HX OF AFIB CVA NOW WITH SHOULDER PAIN LEUKOCYTOSIS METABOLIC SYNDROME Assessment/Plan ABX Plan discussed with: Patient BRIGHT GILL MD Mar 01, 2025 14:56
--- NOTE | 2025-03-01 15:16 | DVH ---
Technique: Real-time ultrasound imaging, with color Doppler and compression of the bilateral common femoral vein, femoral vein, greater saphenous vein, and popliteal vein. Indication: elevated D dimer. RLE pain Comparison: None Findings: The left common femoral vein is compressible and demonstrates no filling defect. The distal left sup erficial femoral vein is noncompressible and contains nearly occlusive thrombus. The left popliteal v ein is noncompressible and contains occlusive thrombus. There is normal compressibility and flow augmentation in all of the imaged right lower extremity deep veins. Right Gonzalez's cyst measuring 5.1 x 5.2 cm. Impression: Occlusive/nearly occlusive deep vein thrombosis within the left distal superficial femoral vein and l eft popliteal vein. Right Gonzalez's cyst measuring 5.[address] Terry notified by technologist at 3:05 p.m. On 03/01/2025.
[2025-03-01] MEDS: SODIUM CHLORIDE 0.9% 1,000 ML IV SCH (15:57)
[2025-03-01] MEDS: IOHEXOL 300 MG/ML 100ML BOTTLE IJ ONE (16:42)
[2025-03-01] MEDS: IOHEXOL 350 MG/ML 100ML IJ ONE (16:43)
--- NOTE | 2025-03-01 19:34 | DVH ---
EXAM: CT CT CHEST/AB/PL W CON- IV ONLY INDICATION: POSSIBLE PE;RUQ PAIN TECHNIQUE: Volumetric multidetector CT images of the chest, abdomen and pelvis were obtained after th e administration of IV contrast. All CT scans at this facility use dose modulation, iterative reconst ruction, and/or weight based dosing when appropriate to reduce radiation dose to as low as reasonably achievable. COMPARISON: CT CHEST WITH CONTRAST on DOS: 12/05/24 FINDINGS: LOWER NECK: Unremarkable LYMPH NODES/MEDIASTINUM: Right hilar and subcarinal lymph nodes measuring up to 1.1 cm. CARDIOVASCULAR: Normal cardiac size. No pericardial effusion. No aneurysmal dilatation of the great v essels. Coronary artery calcifications. LUNG PARENCHYMA/PLEURAL SPACE: Trace right-sided pleural effusion. Consolidation in the right lower lobe, collapse of the right middle lobe, and trace interstitial thickening in the left lower lobe. Ex piratory phase of imaging. CHEST WALL: Unremarkable. LIVER: Normal hepatic size without suspicious focal lesion. GALLBLADDER/BILIARY TREE: No cholelithiasis. SPLEEN: Unremarkable. PANCREAS: Unremarkable. ADRENAL GLANDS: Unremarkable KIDNEYS: No hydronephrosis. benign-appearing cysts BLADDER: Circumferential bladder wall thickening, which may be seen in the setting of acute versus ch ronic cystitis and correlate with urinalysis. anterior bladder diverticula. PELVIC ORGANS: Unremarkable. BOWEL/MESENTERY: No CT evidence of bowel obstruction. Mild stool burden. Normal appendix. ASCITES: Absent LYMPHADENOPATHY: No pathologically enlarged lymph nodes by CT size criteria VASCULATURE: No aneurysmal dilatation. ABDOMINAL WALL: Unremarkable. MUSCULOSKELETAL: No acute fracture or aggressive focal osseous lesion. Multifocal degenerative change of the visualized spine. left shoulder arthroplasty with streak artifact. Severe degenerative change of the right glenohumeral joint. IMPRESSION: 1. No CT evidence of an acute abdominal/pelvic process. 2. Consolidation in the right lower lobe, collapse of the right middle lobe, and trace interstitial t hickening in the left lower lobe. 3. Findings may be secondary to atelectasis and/or developing pneumonia. 4. Trace right-sided pleural effusion. 5. Circumferential bladder wall thickening, which may be seen in the setting of acute versus chronic cystitis and correlate with urinalysis.
[2025-03-01] MEDS: ENOXAPARIN SOD 100 MG/1 ML SYRINGE SC SCH (21:33)
[2025-03-02] VITALS (12 sets, daily range): BP systolic 105–143; BP diastolic 55–93; PULSE 76–115; RESP 16–21; TEMP 97.5–99; O2SAT 93–100
[2025-03-02] MEDS: AZITHROMYCIN 500MG/ 250ML 250 ML IV SCH (10:31)
--- NOTE | 2025-03-02 12:25 | DVHPN2 ---
Subjective Patient continues to report having right shoulder pain, right lower rib pain Reviewed: Care Plan, H&P, Labs, Medications, Previous Orders Changes from previous H/P or p: No Changes General: Per HPI Cardiovascular: Chest Pain Objective Vitals Vital Signs Date Time Temp Pulse Resp B/P (MAP) Pulse Ox O2 Delivery O2 Flow Rate FiO2 03/02/25 10:21 84 117/83 03/02/25 09:00 98.4 18 96 98.4 03/02/25 09:00 0.0 21 03/02/25 08:00 Room Air* Nasal Cannula* Intake/Output Intake and Output 03/02/25 06:59 Intake Total 1474 ml Balance 1474 ml Intake Oral 1424 ml IV Total 50 ml # Voids 6 General Appearance: Alert, Oriented X3, Cooperative, mild distress HEENT: Atraumatic, PERRLA Neck: Carotid [place] Cardiovascular: Normal S1, Normal S2, Other (Atrial fibrillation) Abdomen: Normal bowel sounds, Soft, No tenderness Genitourinary: No Apparent Abnormalities Musculoskeletal: Normal sensory function, Normal motor function Neuro: Normal gait, Normal speech Skin: Dry, Intact Psych/Mental Status: Mental status NL, Mood NL Medications Current Medications Medications Dose Ordered Sig/Jenna Route Start Time Stop Time Status Last Admin Dose Admin Ceftriaxone Sodium 50 ml @ 100 mls/hr DAILY@09 IV 02/28/25 09:00 03/02/25 10:00 100 MLS/HR Ondansetron HCl 4 mg Q4HP PRN IV 02/28/25 07:00 Acetaminophen 650 mg Q6HP PRN PO 02/28/25 07:00 Nitroglycerin 0.4 mg Q5MINP PRN SL 02/28/25 07:00 Morphine Sulfate 2 mg Q30M PRN IV 02/28/25 07:00 Finasteride 5 mg DAILY PO 02/28/25 10:00 03/02/25 10:20 5 MG Tamsulosin HCl 0.4 mg DAILY PO 02/28/25 10:00 03/02/25 10:20 0.4 MG Patient Own Medication 1 tab DAILY PO 02/28/25 10:00 UNV Patient Own Medication 1 tab DAILY PO 02/28/25 10:00 UNV Metoprolol Succinate 25 mg DAILY PO 02/28/25 10:00 03/02/25 10:21 25 MG Digoxin 0.25 mg DAILY PO 02/28/25 10:00 03/02/25 10:20 0.25 MG Acetaminophen/ Hydrocodone Bitart 1 tab Q6HPRN PRN PO 02/28/25 20:45 03/02/25 10:23 1 TAB Enoxaparin Sodium 100 mg Q12HR SC 03/01/25 22:00 03/02/25 10:22 100 MG Sodium Chloride 1,000 ml @ 75 mls/hr [id number] IV 03/01/25 15:30 03/02/25 04:50 75 MLS/HR Albuterol 2.5 mg Q6HWA [facility] 03/02/25 12:00 Ipratropium [place] 0.5 mg Q6HWA [facility] 03/02/25 12:00 Acetylcysteine 100 mg Q6HWA [facility] 03/02/25 12:00 03/04/25 18:01 Azithromycin 250 ml @ 125 mls/hr DAILY IV 03/02/25 10:00 03/02/25 10:31 125 MLS/HR Laboratory Results Laboratory Tests 03/01/25 06:57 Urinalysis Test 02/28/25 15:30 Urine Color Colorless (Yellow) Urine Clarity Clear (Clear) Urine pH 5.5 (5.0-9.0) Urine Specific [place] 1.004 (1.001-1.035) Urine Protein Negative (Negative) Urine Ketones Negative (Negative) Urine Blood Negative /uL (Negative) Urine Nitrite Negative (Negative) Urine Bilirubin Negative (Negative) Urine Urobilinogen Normal mg/dL (Negative) Urine Leukocyte Esterase Negative /uL (Negative) Urine RBC <1 /hpf (0 - 3) Urine Microscopic WBC < 1 /HPF (0-3) Urine Squamous Epithelial Cells None seen /hpf (<5) Urine Bacteria Few /hpf (None Seen) H Urine Glucose Normal mg/dL (Normal) Microbiology Microbiology Date/Time Source Procedure Growth Status 02/28/25 15:30 Voided Urine Urine Culture - Preliminary Resulted 02/28/25 14:38 Blood Blood Culture - Preliminary NO GROWTH AFTER 24 HOURS OF INCUBATION. Resulted Labs and/or images reviewed: Labs reviewed by me, Image(s) reviewed by me Assessment/Plan Assessment/Plan Impression: -chest pain -leukocytosis -obesity -right shoulder pain -atrial fibrillation -primary hypertension -dyslipidemia -history of CVA -extensive DVT to left lower extremity -segmental PE to left lung -right middle and lower lobe atelectasis -community-acquired pneumonia, probable Gram-positive/Gram-negative etiology Plan: -patient placed on full-dose anticoagulation with Lovenox yesterday -CT angiogram of the chest positive for pulmonary embolism, pneumonia, atelectasis -bronchodilators, Mucomyst -continue antibiotic therapy with Rocephin and azithromycin -DVT study: Positive for extensive DVT left lower extremity -check RA factor, LDH, DANELLE Cardiology consultation: Recommendations -pain management -continue rate control with metoprolol -repeat labs in a.m. Total time spent with patient discussing and formulating plan of care: 35 minutes. This medical document was created using an electronic medical record system with [email or web address] dictation system. Although this document has been carefully reviewed, there may still be some phonetic and typographical errors. These areas are purely typographical due to imperfections of the software programs, and do not reflect any compromise in the patient's medical care. Plan discussed with: Patient, Other (RN) My Orders Orders - DINO JORDAN [employer] Procedure Category Date Status Time Bilat Lower Dvt US 03/01/25 Resulted 13:12 Rheumatoid Arthritis LAB 03/01/25 In Process Factor 13:12 Danelle; Comprehensive LAB 03/01/25 In Process Panel 13:12 *Consult Dr. Longo CONS 03/01/25 Transmitted [place] 13:12 Ct Chest/Ab/Pl W Con- CT 03/01/25 Resulted Iv Only 14:03 Enoxaparin Sodium PHA 03/01/25 In Process (Lovenox) 22:00 Sodium Chloride 0.9% PHA 03/01/25 In Process 15:30 Basic Metabolic Panel LAB 03/03/25 Verified 05:00 Basic Metabolic Panel LAB 03/04/25 Verified 05:00 Basic Metabolic Panel LAB 03/05/25 Verified 05:00 Complete Blood Count LAB 03/03/25 Verified 05:00 Complete Blood Count LAB 03/04/25 Verified 05:00 Complete Blood Count LAB 03/05/25 Verified 05:00 Albuterol Medneb PHA 03/02/25 In Process (Ventolin Medneb) 12:00 Ipratropium Medneb PHA 03/02/25 In Process (Atrovent Medneb) 12:00 Acetylcysteine PHA 03/02/25 In Process Inhalation 10% 12:00 Azithromycin 500mg/ PHA 03/02/25 In Process 250ml (Zithromax 50 10:00 Incentive Spirometry ORDERS 03/02/25 Transmitted Q 1hr 07:52 Date of Service: Mar 02, 2025 Billing Provider: DINO JORDAN NP Common Visit Codes: [id number] INP/OBS CARE(HIGH) DINO JORDAN NP Mar 02, 2025 12:25
[2025-03-02] MEDS: ACETYLCYSTEINE 10 %(100MG/ML) SOL 4ML NEB SCH (13:10)
[2025-03-02] MEDS: IPRATROPIUM BROM 0.5 MG/2.5ML INH SOL NEB SCH (13:10)
[2025-03-02] MEDS: ALBUTEROL SULF 2.5 MG/0.5ML(0.5%) NEB SOLN NEB SCH (13:10)
[2025-03-02 14:07] LABS: Anti-Centromere B Antibody <0.2 AI (0.0-0.9); Anti-Jo-1 Antibody <0.2 AI (0.0-0.9); Anti-dsDNA Antibody 1 IU/mL (0-9); Antichromatin Antibody <0.2 AI (0.0-0.9); Antiscleroderma-70 Antibody <0.2 AI (0.0-0.9); Sjogren's Anti-SS-A Antibody <0.2 AI (0.0-0.9); Sjogren's Anti-SS-B Antibody <0.2 AI (0.0-0.9)
[2025-03-03] VITALS (14 sets, daily range): BP systolic 110–145; BP diastolic 60–86; PULSE 77–102; RESP 18–20; TEMP 97.5–99.5; O2SAT 90–100
[2025-03-03 06:31] LABS: Anion Gap 11 (5-15); Carbon Dioxide 26 mmol/L (20-31); Chloride 100 mmol/L (98-107); Potassium 4.3 mmol/L (3.5-5.1); Sodium 137 mmol/L (136-145)
[2025-03-03 06:33] LABS: Calcium 9.1 mg/dL (8.7-10.4)
[2025-03-03 06:37] LABS: BUN/Creatinine Ratio 19.3 (10.0-20.0)
[2025-03-03 06:39] LABS: Hematocrit 39.1 % (41.0-53.0); Hemoglobin 13.1 g/dL (13.5-17.5); Mean Corpuscular Hemoglobin 29.7 pg (28.0-32.0); Mean Corpuscular Volume 88.7 fL (80.0-100.0); Nucleated Red Blood Cells % 0.1 %
[2025-03-03 06:46] LABS: Blood Urea Nitrogen 23 mg/dL (9-23); Glucose 107 mg/dL (74-106)
--- NOTE | 2025-03-03 11:04 | DVH ---
CHEST RADIOGRAPH Indication: Right middle lobe pna Technique: Single frontal view of the chest was obtained Comparison: XY CHEST XRAY 1 VIEW on DOS: 02/28/25 FINDINGS: Lines and Tubes: None Lungs: Right lower lobe airspace disease with small pleural effusion. Pleura: No pneumothorax. Cardiomediastinal contours: Cardiomegaly Bones: Left shoulder prosthesis in place IMPRESSION: 1. Right lower lobe airspace disease and pleural effusion. Findings may represent pneumonia. Correl ate or possible congestive failure additionally.
--- NOTE | 2025-03-03 11:04 | DVHPN2 ---
Subjective Pain to right shoulder and leg has improved. Reviewed: Care Plan, H&P, Labs, Medications, Previous Orders Changes from previous H/P or p: No Changes General: Per HPI Cardiovascular: Chest Pain Objective Vitals Vital Signs Date Time Temp Pulse Resp B/P (MAP) Pulse Ox O2 Delivery O2 Flow Rate FiO2 03/03/25 10:57 81 18 100 03/03/25 10:47 Room Air* 0 21 03/03/25 09:53 123/66 03/03/25 08:49 99.5 99.5 Intake/Output Intake and Output 03/03/25 07:00 Intake Total 1280 ml Output Total 560 ml Balance 720 ml Intake Oral 980 ml IV Total 300 ml Output Urine Total 560 ml General Appearance: Alert, Oriented X3, Cooperative, mild distress HEENT: Atraumatic, PERRLA Neck: Carotid [place] Cardiovascular: Normal S1, Normal S2, Other (Atrial fibrillation) Abdomen: Normal bowel sounds, Soft, No tenderness Genitourinary: No Apparent Abnormalities Musculoskeletal: Normal sensory function, Normal motor function Neuro: Normal gait, Normal speech Skin: Dry, Intact Psych/Mental Status: Mental status NL, Mood NL Medications Current Medications Medications Dose Ordered Sig/Jenna Route Start Time Stop Time Status Last Admin Dose Admin Ceftriaxone Sodium 50 ml @ 100 mls/hr DAILY@09 IV 02/28/25 09:00 03/03/25 09:51 100 MLS/HR Ondansetron HCl 4 mg Q4HP PRN IV 02/28/25 07:00 Acetaminophen 650 mg Q6HP PRN PO 02/28/25 07:00 Nitroglycerin 0.4 mg Q5MINP PRN SL 02/28/25 07:00 Morphine Sulfate 2 mg Q30M PRN IV 02/28/25 07:00 Finasteride 5 mg DAILY PO 02/28/25 10:00 03/03/25 09:51 5 MG Tamsulosin HCl 0.4 mg DAILY PO 02/28/25 10:00 03/02/25 10:20 0.4 MG Patient Own Medication 1 tab DAILY PO 02/28/25 10:00 UNV Patient Own Medication 1 tab DAILY PO 02/28/25 10:00 UNV Metoprolol Succinate 25 mg DAILY PO 02/28/25 10:00 03/03/25 09:53 25 MG Digoxin 0.25 mg DAILY PO 02/28/25 10:00 03/03/25 09:52 0.25 MG Acetaminophen/ Hydrocodone Bitart 1 tab Q6HPRN PRN PO 02/28/25 20:45 03/02/25 20:56 1 TAB Albuterol 2.5 mg Q6HWA [facility] 03/02/25 12:00 03/03/25 10:47 2.5 MG Ipratropium [place] 0.5 mg Q6HWA [facility] 03/02/25 12:00 03/03/25 10:47 0.5 MG Acetylcysteine 100 mg Q6HWA [facility] 03/02/25 12:00 03/04/25 18:01 03/03/25 10:47 100 MG Azithromycin 250 ml @ 125 mls/hr DAILY IV 03/02/25 10:00 03/02/25 10:31 125 MLS/HR Apixaban 5 mg BID PO 03/03/25 22:00 Laboratory Results Laboratory Tests 03/03/25 05:43 Chemistry Test 03/03/25 05:43 Calcium Level 9.1 mg/dL (8.7-10.4) Coagulation Test 03/02/25 17:02 Protein C Antigen Pending Protein S Antigen Pending Free Protein S Antigen Pending Factor V Leiden Mutation Pending Urinalysis Test 02/28/25 15:30 Urine Color Colorless (Yellow) Urine Clarity Clear (Clear) Urine pH 5.5 (5.0-9.0) Urine Specific [place] 1.004 (1.001-1.035) Urine Protein Negative (Negative) Urine Ketones Negative (Negative) Urine Blood Negative /uL (Negative) Urine Nitrite Negative (Negative) Urine Bilirubin Negative (Negative) Urine Urobilinogen Normal mg/dL (Negative) Urine Leukocyte Esterase Negative /uL (Negative) Urine RBC <1 /hpf (0 - 3) Urine Microscopic WBC < 1 /HPF (0-3) Urine Squamous Epithelial Cells None seen /hpf (<5) Urine Bacteria Few /hpf (None Seen) H Urine Glucose Normal mg/dL (Normal) Microbiology Microbiology Date/Time Source Procedure Growth Status 02/28/25 15:30 Voided Urine Urine Culture - Final Complete 02/28/25 14:38 Blood Blood Culture - Preliminary NO GROWTH AFTER 48 HOURS OF INCUBATION. Resulted Labs and/or images reviewed: Labs reviewed by me, Image(s) reviewed by me Assessment/Plan Assessment/Plan Impression: -chest pain -leukocytosis -obesity -right shoulder pain -atrial fibrillation -primary hypertension -dyslipidemia -history of CVA -extensive DVT to left lower extremity -segmental PE to left lung -right middle and lower lobe atelectasis -community-acquired pneumonia, probable Gram-positive/Gram-negative etiology -probable rheumatoid arthritis -obstructive sleep apnea Plan: -patient placed on full-dose anticoagulation with Lovenox yesterday -CT angiogram of the chest positive for pulmonary embolism, pneumonia, atelectasis -bronchodilators, Mucomyst -continue antibiotic therapy with Rocephin and azithromycin -Change anticoagulation to Eliquis -elevated LDH, rheumatoid factor -CPAP at night -Cardiology consultation: Recommendations -pain management -continue rate control with metoprolol -repeat labs in a.m. Total time spent with patient discussing and formulating plan of care: 35 minutes. This medical document was created using an electronic medical record system with [employer] dictation system. Although this document has been carefully reviewed, there may still be some phonetic and typographical errors. These areas are purely typographical due to imperfections of the software programs, and do not reflect any compromise in the patient's medical care. Plan discussed with: Patient, Daughter, Son, Other (RN) My Orders Orders - DINO JORDAN NP Procedure Category Date Status Time Psa Total+% Free LAB 03/03/25 In Process 04:00 Protein C Antigen LAB 03/02/25 In Process 12:38 Protein S-Antigen LAB 03/02/25 In Process Total & Free 12:38 Factor V Leiden LAB 03/02/25 In Process Mutation 12:38 Chest Xray 1 View XY 03/03/25 Taken 10:33 Apixaban (Eliquis) PHA 03/03/25 In Process 22:00 Bipap/Cpap For Sleep RT 03/03/25 Transmitted Apnea 11:01 Date of Service: Mar 03, 2025 Billing Provider: DINO JORDAN NP Common Visit Codes: [id number] INP/OBS CARE(HIGH) DINO JORDAN NP Mar 03, 2025 11:04
[2025-03-03] MEDS: APIXABAN 5 MG TAB PO ONE (11:10)
[2025-03-03] MEDS: MELATONIN 5 MG TAB PO SCH (21:39)
[2025-03-03] MEDS: APIXABAN 5 MG TAB PO SCH (21:40)
[2025-03-04] VITALS (17 sets, daily range): BP systolic 99–139; BP diastolic 60–83; PULSE 69–105; RESP 14–22; TEMP 97.6–98.1; O2SAT 88–100
[2025-03-04 05:59] LABS: Hematocrit 35.6 % (41.0-53.0); Hemoglobin 12.2 g/dL (13.5-17.5); Mean Corpuscular Hemoglobin 30.3 pg (28.0-32.0); Mean Corpuscular Volume 88.5 fL (80.0-100.0); Nucleated Red Blood Cells % 0.0 %
[2025-03-04 06:14] LABS: Anion Gap 9 (5-15); Carbon Dioxide 27 mmol/L (20-31); Chloride 103 mmol/L (98-107); Potassium 4.7 mmol/L (3.5-5.1); Sodium 139 mmol/L (136-145)
[2025-03-04 06:16] LABS: Calcium 9.1 mg/dL (8.7-10.4)
[2025-03-04 06:20] LABS: BUN/Creatinine Ratio 18.9 (10.0-20.0); Blood Urea Nitrogen 21 mg/dL (9-23); Glucose 100 mg/dL (74-106)
[2025-03-04] MEDS ORDERED: APIX5TAB PO (10:27)
[2025-03-04] MEDS ORDERED: HYDR-4902 PO (10:27)
[2025-03-04] MEDS ORDERED: LEVO500T91 PO (10:27)
--- NOTE | 2025-03-04 10:43 | DVHDS2 ---
Discharge Summary Date of Admission Feb 28, 2025 at 06:57 Date of Discharge: Mar 04, 2025 Admitting Diagnosis Chest pain Labs/Diagnostic Data: Laboratory Results Test 03/04/25 04:51 03/03/25 05:43 03/02/25 17:02 03/01/25 15:01 White Blood Count 10.4 10^3/uL (4.4-10.8) Red Blood Count 4.02 10^6/uL (4.5-5.90) Hemoglobin 12.2 g/dL (13.5-17.5) Hematocrit 35.6 % (41.0-53.0) Mean Corpuscular Volume 88.5 fL (80.0-100.0) Mean Corpuscular Hemoglobin 30.3 pg (28.0-32.0) Mean Corpuscular Hemoglobin Concent 34.3 g/dL (32.0-36.0) Red Cell Distribution Width 14.9 % (11.8-14.3) Platelet Count 317 10^3/uL (140-450) Mean Platelet Volume 7.1 fL (6.9-10.8) Neutrophils (%) (Auto) 71.3 % (37.0-80.0) Lymphocytes (%) (Auto) 16.9 % (10.0-50.0) Monocytes (%) (Auto) 10.5 % (0.0-12.0) Eosinophils (%) (Auto) 1.0 % (0.0-7.0) Basophils (%) (Auto) 0.3 % (0.0-2.0) Neutrophils # (Auto) 7.4 10 ^3/uL (1.6-8.6) Lymphocytes # (Auto) 1.8 10 ^3/uL (0.4-5.4) Monocytes # (Auto) 1.1 10 ^3/uL (0-1.3) Eosinophils # (Auto) 0.1 10 ^3/uL (0-0.8) Basophils # (Auto) 0 10 ^3/uL (0-0.2) Nucleated Red Blood Cells 0.0 % Sodium Level 139 mmol/L (136-145) Potassium Level 4.7 mmol/L (3.5-5.1) Chloride Level 103 mmol/L (98-107) Carbon Dioxide Level 27 mmol/L (20-31) Anion Gap 9 (5-15) Blood Urea Nitrogen 21 mg/dL (9-23) Creatinine 1.11 mg/dL (0.700-1.30) Glomerular Filtration Rate Calc 68 mL/min (>90) BUN/Creatinine Ratio 18.9 (10.0-20.0) Serum Glucose 100 mg/dL (74-106) Calcium Level 9.1 mg/dL (8.7-10.4) Rheumatoid Factor 159.0 IU/mL (<14.0) Anti-Nuclear Antibody Comment Comment (.) KAMERON-1 Antibody <0.2 AI (0.0-0.9) SS-A/Ro Antibody <0.2 AI (0.0-0.9) SS-B/La Antibody <0.2 AI (0.0-0.9) Sm Antibody <0.2 AI (0.0-0.9) RUSTIC TERRAZZO SETTER Antibody 0.6 AI (0.0-0.9) Scl-70 (Scleroderma) Antibody <0.2 AI (0.0-0.9) Anti-Double Strand DNA Antibody 1 IU/mL (0-9) Chromatin Antibody <0.2 AI (0.0-0.9) Centromere B Antibody <0.2 AI (0.0-0.9) Test 03/01/25 06:57 02/28/25 15:30 02/28/25 14:38 02/28/25 09:32 Total Bilirubin 0.7 mg/dL (0.2-1.0) Aspartate Amino Transferase (AST) 23 U/L (13-40) Alanine Aminotransferase (ALT) 18 U/L (7-40) Alkaline Phosphatase 71 U/L (46-116) Lactate Dehydrogenase 266 U/L (120-246) Total Protein 6.6 g/dL (5.7-8.2) Albumin 3.6 g/dL (3.2-4.8) Urine Color Colorless (Yellow) Urine Clarity Clear (Clear) Urine pH 5.5 (5.0-9.0) Urine Specific [place] 1.004 (1.001-1.035) Urine Protein Negative (Negative) Urine Ketones Negative (Negative) Urine Blood Negative /uL (Negative) Urine Nitrite Negative (Negative) Urine Bilirubin Negative (Negative) Urine Urobilinogen Normal mg/dL (Negative) Urine Leukocyte Esterase Negative /uL (Negative) Urine RBC <1 /hpf (0 - 3) Urine Microscopic WBC < 1 /HPF (0-3) Urine Squamous Epithelial Cells None seen /hpf (<5) Urine Bacteria Few /hpf (None Seen) Urine Glucose Normal mg/dL (Normal) Urine Opiates Screen Neg (NEGATIVE) Urine Fentanyl Screen Neg (NEGATIVE) Urine Barbiturates Screen Neg (NEGATIVE) Urine Phencyclidine Screen Neg (NEGATIVE) Urine Amphetamines Screen Neg (NEGATIVE) Urine Benzodiazepines Screen Neg (NEGATIVE) Urine Cocaine Screen Neg (NEGATIVE) Urine Cannabinoids Screen Neg (NEGATIVE) Prothrombin Time 12.1 sec (9.3-11.8) Prothrombin Time INR 1.16 (0.9-1.15) Activated Partial Thromboplast Time 28.8 SEC (24.5-34.5) D-Dimer, Quantitative 6.99 mg/L FEU (0.0-0.49) Influenza Type A Antigen Negative (Negative) Influenza Type B Antigen Negative (Negative) SARS-CoV-2 Antigen (Rapid) Negative (NEGATIVE) Test 02/28/25 07:04 02/28/25 03:23 02/28/25 00:24 Erythrocyte Sedimentation Rate 58 mm/hr (0-20) Hemoglobin A1c 5.8 % A1C (<5.7) Magnesium Level 2.1 mg/dL (1.6-2.6) C-Reactive Protein High Sensitivity > 20.00 mg/dL (<1.0) Triglycerides Level 75 mg/dL (< 150) Cholesterol Level 159 mg/dL (< 200) LDL Cholesterol 87 mg/dL (< 100) HDL Cholesterol 58 mg/dL (40-59) Thyroid Stimulating Hormone (TSH) 1.69 uIU/mL (0.55-4.78) Free Thyroxine (T4) Calculated 1.49 ng/dL (0.89-1.76) Digoxin Level 1.30 ng/mL (0.8-2) Troponin I High Sensitivity 9 ng/L (</=54) B-Type Natriuretic Peptide 185.86 pg/mL (0-100) Other Laboratory Tests 03/04/25 04:51 Brief Hx & Hospital Course: History of Present Illness Mitchell Guerrero is a 80 year old male with past medical history of arthritis, left hip surgery, bilateral shoulder surgery, and AFib who presents to the ED with chest pain x2 days which has worsened, reports that it radiates to the right shoulder and arm. Patient does report that the pain had started with the throbbing in his chest ever since he received the COVID vaccine 5 years ago. Patient also reports that he has chronic pain in his shoulder for the last 5 years after receiving the COVID vaccine. Patient states that he has a senior dentist, Dr. Longo. He also endorses that he is compliant with his medications. Patient also reports that he was supposed to see his senior dentist yesterday but canceled. Patient reports that his chest pain is 8/10 throbbing and constant. He reports that there are no alleviating factors. He also endorses that he lives at home alone, does not use any DMEs. Patient denies any recent travels, recent sick contacts, recent ingestion of spoiled food, recent trauma or injury, shortness of breath, fever, chills, lightheadedness, weakness, dizziness, abdominal pain, nausea, vomiting, diarrhea, or urinary symptoms. Course of hospitalization: Patient's EKG, unremarkable. Patient also had negative troponins. Patient was noted to have elevated white blood cell count without left shift. Long discussion was made with the patient regarding his chief complaint. Apparently, his pain is located more in his lower right rib area in addition to having pain in his right shoulder. Patient had D-dimer that was significantly elevated, for which patient has CT scan of chest, abdomen, pelvis, which was positive for right middle and lower lobe atelectasis, pneumonia, as well as segmental pulmonary embolism to left lower lobes. Patient also had DVT study with significant occlusive thrombus in his SFV to his popliteal vein. Patient has a no pain or swelling to left lower extremity. JASMYNE and rheumatoid panel was also ordered with findings of his rheumatoid factor to be significantly elevated at 159. Patient was started on full-dose anticoagulation with Lovenox which was switched to Eliquis. Patient's PCP/senior dentist, Dr. Longo was consulted regarding patient's chest pain and assistance with management while the patient is in the hospital. All the findings were discussed with the patient's daughter and son. Given the patient lives alone he will be discharged home with home health services. Patient will also be provided a walker. Medication reconciliation was performed with continuation of all medications. He will be discharged home on Eliquis 10 mg p.o. b.i.d. for a total seven days, at which time he will be switched to 5 mg p.o. twice a day. Given his acute infection, treatment for his RA can be done as an outpatient. His right shoulder pain and right hip pain has improved with [place] 5/325, for which that we will be continued at home as well. Antibiotic therapy we will be continued at home with Levaquin 500 mg p.o. daily for additional seven days. Discussion will be made with his PCP. Patient will follow up with his PCP in 1-2 weeks. The patient and family are agreeable with discharge plan. Physical examination General: Alert and Oriented x3. No acute distress. Well-nourished. Eyes: EOMI. Anicteric. HENT: Moist mucous membranes. Lungs: Clear to auscultation bilaterally. No accessory muscle use. Cardiovascular: Regular rate and rhythm. No murmur. No JVD. Abdomen: Soft, non-tender and non-distended. No palpable masses. Extremities: No edema. Non-tender. Skin: No rashes or lesions. Warm. Neurologic: No focal neurological deficits. CN II-XII grossly intact, but not individually tested. Psychiatric: Cooperative. Appropriate mood and affect. Total time spent with patient discussing and formulating plan of care: 35 minutes. This medical document was created using an electronic medical record system with [employer] dictation system. Although this document has been carefully reviewed, there may still be some phonetic and typographical errors. These areas are purely typographical due to imperfections of the software programs, and do not reflect any compromise in the patient's medical care. Consults/Reason for consult Cardiology: Chest pain Condition at Discharge: Guarded Final Diagnosis/Problems List Pulmonary embolism DVT Pneumonia -chest pain -leukocytosis -obesity -right shoulder pain -atrial fibrillation -primary hypertension -dyslipidemia -history of CVA -extensive DVT to left lower extremity -segmental PE to left lung -right middle and lower lobe atelectasis -community-acquired pneumonia, probable Gram-positive/Gram-negative etiology -probable rheumatoid arthritis -obstructive sleep apnea Discharge Disposition: Home with Health Services Discharge Instruct/Medications Diet: Cardiac 2g Na,low cholest Activity: No Restrictions, As Tolerated Follow Up/Referral: Follow up with Dr. Longo in one week Medications: Levaquin 500mg po daily x 7 days [place] 5/325 q.8 hours as needed for [id number] pain Eliquis 10 mg p.o. b.i.d. for six days, then switch to 5 mg p.o. b.i.d. Continue all previous home medications Scheduled Apixaban Base (Eliquis), 5 MG PO BID Apixaban Base (Eliquis), 10 MG PO BID Baclofen (Baclofen), 10 MG PO BID, (Reported) Digoxin (Digoxin), 1 TAB PO DAILY, (Reported) Finasteride (Finasteride), 1 TAB PO DAILY, (Reported) Levofloxacin Hemihydrate (Levaquin 500 Mg), 1 TAB PO DAILY Metoprolol Succinate (Metoprolol Succinate Er), 1 TAB PO DAILY, (Reported) Tamsulosin Hcl (Tamsulosin Hcl), 2 CAP PO DAILY, (Reported) Scheduled PRN Hydrocodone-Acetaminophen (Hydrocodone Bitartrate/AC 5-325 mg), 1 TAB PO Q8HP PRN 36 Discharge Statement: "Patient was advised to return to the ER or call 911 if any headaches, dizziness, shortness of breath, chest pain, abdominal pain, bleeding, fevers, or worsening of medical condition. Patient was counseled about treatment plan, medications, possible side effects, patientverbalized understanding. All questions were answered to the best of my ability. This discharge took greater then 30 minutes in planning, reviewing documentation, counseling the patient, and discussing with other team members." DME: Diagnosis: Left lower extremity DVT, left upper lobe pulmonary embolism History of CVA Rheumatoid arthritis ASSESSMENT ASSESSMENT Assessment Pulmonary embolism DVT Pneumonia Date of Service: Mar 04, 2025 Billing Provider: DINO JORDAN NP Common Visit Codes: [id number] DISCH DAY >30min DINO JORDAN NP Mar 04, 2025 10:43
[2025-03-04] MEDS: APIXABAN 5 MG TAB PO SCH (10:57)
[2025-03-05] VITALS (10 sets, daily range): BP systolic 123–139; BP diastolic 67–90; PULSE 85–106; RESP 14–20; TEMP 97.4–98.1; O2SAT 90–98
[2025-03-05 06:09] LABS: Hematocrit 35.1 % (41.0-53.0); Hemoglobin 12.0 g/dL (13.5-17.5); Mean Corpuscular Hemoglobin 30.1 pg (28.0-32.0); Mean Corpuscular Volume 88.1 fL (80.0-100.0); Nucleated Red Blood Cells % 0.1 %
[2025-03-05 06:26] LABS: Calcium 9.0 mg/dL (8.7-10.4); Chloride 103 mmol/L (98-107); Sodium 140 mmol/L (136-145)
[2025-03-05 06:27] LABS: Anion Gap 9 (5-15); Carbon Dioxide 28 mmol/L (20-31)
[2025-03-05 06:33] LABS: BUN/Creatinine Ratio 16.5 (10.0-20.0); Blood Urea Nitrogen 18 mg/dL (9-23)
[2025-03-05 06:36] LABS: Glucose 108 mg/dL (74-106); Potassium 5.1 mmol/L (3.5-5.1)
[2025-03-05 08:07] LABS: Prostate Specific Antigen 4.2 ng/mL (0.0-4.0)
--- NOTE | 2025-03-05 09:20 | DVHPN2 ---
Subjective Pain to right shoulder and leg has improved. Reviewed: Care Plan, H&P, Labs, Medications, Previous Orders Changes from previous H/P or p: No Changes General: Per HPI Cardiovascular: Chest Pain Objective Vitals Vital Signs Date Time Temp Pulse Resp B/P (MAP) Pulse Ox O2 Delivery O2 Flow Rate FiO2 03/05/25 09:10 106 03/05/25 09:10 123/74 03/05/25 08:30 14 92 21 03/05/25 08:10 Room Air* 0 03/05/25 04:37 97.8 97.8 Intake/Output Intake and Output 03/05/25 07:00 Intake Total 750 ml Output Total 1500 ml Balance -750 ml Intake Oral 750 ml Output Urine Total 1500 ml # Bowel Movements 2 General Appearance: Alert, Oriented X3, Cooperative, mild distress HEENT: Atraumatic, PERRLA Neck: Carotid [place] Cardiovascular: Normal S1, Normal S2, Other (Atrial fibrillation) Abdomen: Normal bowel sounds, Soft, No tenderness Genitourinary: No Apparent Abnormalities Musculoskeletal: Normal sensory function, Normal motor function Neuro: Normal gait, Normal speech Skin: Dry, Intact Psych/Mental Status: Mental status NL, Mood NL Medications Current Medications Medications Dose Ordered Sig/Jenna Route Start Time Stop Time Status Last Admin Dose Admin Ceftriaxone Sodium 50 ml @ 100 mls/hr DAILY@09 IV 02/28/25 09:00 03/05/25 09:09 100 MLS/HR Ondansetron HCl 4 mg Q4HP PRN IV 02/28/25 07:00 Acetaminophen 650 mg Q6HP PRN PO 02/28/25 07:00 Nitroglycerin 0.4 mg Q5MINP PRN SL 02/28/25 07:00 Morphine Sulfate 2 mg Q30M PRN IV 02/28/25 07:00 Finasteride 5 mg DAILY PO 02/28/25 10:00 03/05/25 09:09 5 MG Tamsulosin HCl 0.4 mg DAILY PO 02/28/25 10:00 03/04/25 09:57 0.4 MG Patient Own Medication 1 tab DAILY PO 02/28/25 10:00 UNV Patient Own Medication 1 tab DAILY PO 02/28/25 10:00 UNV Metoprolol Succinate 25 mg DAILY PO 02/28/25 10:00 03/05/25 09:10 25 MG Digoxin 0.25 mg DAILY PO 02/28/25 10:00 03/05/25 09:10 0.25 MG Acetaminophen/ Hydrocodone Bitart 1 tab Q6HPRN PRN PO 02/28/25 20:45 03/03/25 21:40 1 TAB Albuterol 2.5 mg Q6HWA [facility] 03/02/25 12:00 03/05/25 06:00 2.5 MG Ipratropium [place] 0.5 mg Q6HWA [facility] 03/02/25 12:00 03/05/25 06:00 0.5 MG Azithromycin 250 ml @ 125 mls/hr DAILY IV 03/02/25 10:00 03/04/25 09:59 125 MLS/HR Melatonin 10 mg HS PO 03/03/25 22:00 03/04/25 21:26 10 MG Apixaban 10 mg BID PO 03/04/25 10:00 03/11/25 09:59 03/04/25 21:26 10 MG Apixaban 5 mg BID PO 03/11/25 10:00 Laboratory Results Laboratory Tests 03/05/25 05:06 Chemistry Test 03/05/25 05:06 Calcium Level 9.0 mg/dL (8.7-10.4) Urinalysis Test 02/28/25 15:30 Urine Color Colorless (Yellow) Urine Clarity Clear (Clear) Urine pH 5.5 (5.0-9.0) Urine Specific [place] 1.004 (1.001-1.035) Urine Protein Negative (Negative) Urine Ketones Negative (Negative) Urine Blood Negative /uL (Negative) Urine Nitrite Negative (Negative) Urine Bilirubin Negative (Negative) Urine Urobilinogen Normal mg/dL (Negative) Urine Leukocyte Esterase Negative /uL (Negative) Urine RBC <1 /hpf (0 - 3) Urine Microscopic WBC < 1 /HPF (0-3) Urine Squamous Epithelial Cells None seen /hpf (<5) Urine Bacteria Few /hpf (None Seen) H Urine Glucose Normal mg/dL (Normal) Microbiology Microbiology Date/Time Source Procedure Growth Status 02/28/25 15:30 Voided Urine Urine Culture - Final Complete 02/28/25 14:38 Blood Blood Culture - Preliminary NO GROWTH AFTER 72 HOURS OF INCUBATION. Resulted Labs and/or images reviewed: Labs reviewed by me, Image(s) reviewed by me Assessment/Plan Assessment/Plan Impression: -chest pain -leukocytosis -obesity -right shoulder pain -atrial fibrillation -primary hypertension -dyslipidemia -history of CVA -extensive DVT to left lower extremity -segmental PE to left lung -right middle and lower lobe atelectasis -community-acquired pneumonia, probable Gram-positive/Gram-negative etiology -probable rheumatoid arthritis -obstructive sleep apnea Plan: Events: Patient discharged yesterday. Awaiting insurance authorization for [facility]. -CT angiogram of the chest positive for pulmonary embolism, pneumonia, atelectasis -bronchodilators, Mucomyst -continue antibiotic therapy with Rocephin and azithromycin -Change anticoagulation to Eliquis -elevated LDH, rheumatoid factor -CPAP at night -Cardiology consultation: Recommendations -pain management -continue rate control with metoprolol -repeat labs in a.m. Total time spent with patient discussing and formulating plan of care: 35 minutes. This medical document was created using an electronic medical record system with [employer] dictation system. Although this document has been carefully reviewed, there may still be some phonetic and typographical errors. These areas are purely typographical due to imperfections of the software programs, and do not reflect any compromise in the patient's medical care. Plan discussed with: Patient, Other (RN) My Orders Orders - DINO JORDAN NP Procedure Category Date Status Time Apixaban (Eliquis) PHA 03/04/25 In Process 10:00 Apixaban (Eliquis) PHA 03/11/25 In Process 10:00 * Chore Tender CONS 03/04/25 Transmitted Consult Dme: [facility] DME 03/04/25 Transmitted 10:14 Discharge DISCHARGE 03/04/25 Transmitted 10:43 Date of Service: Mar 05, 2025 Billing Provider: DINO JORDAN NP Common Visit Codes: [id number] INP/OBS CARE(MOD) DINO JORDAN NP Mar 05, 2025 09:20
--- NOTE | 2025-03-05 14:17 | DVHPN2 ---
Progress Note - Dictate Date Seen: Mar 04, 2025 Medical Necessity Reason Pt with a Central, PICC or Fol: No Subjective PT WITH HX OF CHEST PAIN TROPONIN NEGATIVE ECG NEGATIVE BNP NL ECHO EF >55% 10/31 STRESS CARDIOLITE NORMAL PERFUSION 11/30 HX OF AFIB CVA NOW WITH SHOULDER PAIN LEUKOCYTOSIS METABOLIC SYNDROME PE WITH DVT vital signs Vital Sign Date Time Temp Pulse Resp B/P (MAP) Pulse Ox O2 Delivery O2 Flow Rate FiO2 03/05/25 12:40 97.4 85 18 128/67 (87) 95 97.4 03/05/25 12:22 Nasal Cannula* 2 28 Total Intake and Output 03/04/25 03/04/25 03/05/25 15:00 23:00 07:00 Intake Total 325 ml 425 ml Output Total 600 ml 900 ml Balance -275 ml -475 ml medications Current Medications Medications Dose Ordered Sig/Jenna Route Start Time Stop Time Status Last Admin Dose Admin Ceftriaxone Sodium 50 ml @ 100 mls/hr DAILY@09 IV 02/28/25 09:00 03/05/25 09:09 100 MLS/HR Ondansetron HCl 4 mg Q4HP PRN IV 02/28/25 07:00 Acetaminophen 650 mg Q6HP PRN PO 02/28/25 07:00 Nitroglycerin 0.4 mg Q5MINP PRN SL 02/28/25 07:00 Morphine Sulfate 2 mg Q30M PRN IV 02/28/25 07:00 Finasteride 5 mg DAILY PO 02/28/25 10:00 03/05/25 09:09 5 MG Tamsulosin HCl 0.4 mg DAILY PO 02/28/25 10:00 03/05/25 09:44 0.4 MG Patient Own Medication 1 tab DAILY PO 02/28/25 10:00 UNV Patient Own Medication 1 tab DAILY PO 02/28/25 10:00 UNV Metoprolol Succinate 25 mg DAILY PO 02/28/25 10:00 03/05/25 09:10 25 MG Digoxin 0.25 mg DAILY PO 02/28/25 10:00 03/05/25 09:10 0.25 MG Acetaminophen/ Hydrocodone Bitart 1 tab Q6HPRN PRN PO 02/28/25 20:45 03/03/25 21:40 1 TAB Albuterol 2.5 mg Q6HWA NEB 03/02/25 12:00 03/05/25 12:21 2.5 MG Ipratropium [place] 0.5 mg Q6HWA NEB 03/02/25 12:00 03/05/25 12:21 0.5 MG Azithromycin 250 ml @ 125 mls/hr DAILY IV 03/02/25 10:00 03/05/25 09:44 125 MLS/HR Melatonin 10 mg HS PO 03/03/25 22:00 03/04/25 21:26 10 MG Apixaban 10 mg BID PO 03/04/25 10:00 03/11/25 09:59 03/05/25 09:44 10 MG Apixaban 5 mg BID PO 03/11/25 10:00 laboratory and microbiology Laboratory Tests 03/05/25 05:06 Test 03/05/25 05:06 Range/Units Serum Glucose 108 H 74-106 mg/dL Problem List HX OF CHEST PAIN TROPONIN NEGATIVE ECG NEGATIVE BNP NL ECHO EF >55% 10/31 STRESS CARDIOLITE NORMAL PERFUSION 11/30 HX OF AFIB CVA NOW WITH SHOULDER PAIN LEUKOCYTOSIS METABOLIC SYNDROME PE WITH DVT Assessment/Plan ABX ANTICOAGULATION CONNECTIVE TISSUE SCREEN NEGATIVE CT CHEST NEGATIVE LOWER VENOUS DOPPLER POSITIVE FOR DVT IN POPLITEAL VEIN Dietary Evaluation Review Recommendations by RD: Dietary education by RD Comments: 1) Add 45g CCHO restriction to cardiac diet 2) Refer to outpatient RD/CDCES for prediabetes education and weight management 3) Follow-up with cardiology 4) Continue to monitor I&O, labs, and skin integrity Expected Outcomes/Goals: 1) appetite and labs to improve 2) gradual wt loss 3) f/u in 3-5 days Plan discussed with: Patient BRIGHT GILL MD Mar 05, 2025 14:17
[2025-03-07 18:07] LABS: Proten S Antigen Total 129 % (60-150)
[2025-03-11] MEDS ORDERED: APIXABAN 5 MG TAB PO SCH (10:00)
== END 2025-03-05 17:09 | disposition home health service (06) | DRG 871 ==
LOC: ER → OVERFLOW 06:57 → TELE-WESTW 16:48 → TELE-CENTR 03-03 02:29
PROVIDERS: ADMIT Nurse Practitioner Acute Care; ATTEND Nurse Practitioner Acute Care
PROC: 5A09357 Assistance with Respiratory Ventilation, Less than 24 Consecutive Hours, Continuous Positive Airway Pressure (ICD-10-PCS; principal; 2025-03-04)
DX: A41.9 Sepsis, unspecified organism (principal); I26.99 Other pulmonary embolism without acute cor pulmonale; J15.69 Pneumonia due to other Gram-negative bacteria; J15.9 Unspecified bacterial pneumonia; I82.412 Acute embolism and thrombosis of left femoral vein; J98.11 Atelectasis; I82.432 Acute embolism and thrombosis of left popliteal vein; E66.9 Obesity, unspecified; Z20.822 Contact with and (suspected) exposure to COVID-19; D72.829 Elevated white blood cell count, unspecified; F10.90 Alcohol use, unspecified, uncomplicated; G47.33 Obstructive sleep apnea (adult) (pediatric); E78.5 Hyperlipidemia, unspecified; M06.9 Rheumatoid arthritis, unspecified; I48.91 Unspecified atrial fibrillation; I10 Essential (primary) hypertension; G89.29 Other chronic pain; M25.511 Pain in right shoulder; Z68.32 Body mass index [BMI] 32.0-32.9, adult; Z86.73 Personal history of transient ischemic attack (TIA), and cerebral infarction without residual deficits; Z79.01 Long term (current) use of anticoagulants
CPT/HCPCS: 36415; 71045; 71260; 74177; 80048; 80053; 80061; 80162; 80307; 81001; 81241; 83036; 83516; 83615; 83735; 83880; 84154; 84439; 84443; 84484; 85025; 85302; 85305; 85306; 85379; 85610; 85652; 85730; 86141; 86225; 86235; 86431; 87040; 87086; 87426; 87804; 93005; 93970; 94640; 94660; G0378

== ENCOUNTER 2025-03-25 13:57 | Outpatient (CLI) | payer OTHER ==
[~2025-03-25 13:57] MED LIST changes: +APIX5TAB PO; +FIN5T PO; +HYDR-4902 PO; -IOHEXOL 350 MG/ML 100ML IJ ONE; +LEVO500T91 PO; +METO25TA93 PO; +TAMS0.4C39 PO
== END 2025-03-25 17:00 | disposition home or self-care (01) ==
LOC: Rad HDHVI 13:57
PROVIDERS: ATTEND Internal Medicine Cardiovascular Disease
DX: I08.1 Rheumatic disorders of both mitral and tricuspid valves (principal); I51.7 Cardiomegaly; R06.02 Shortness of breath
CPT/HCPCS: 93306

== ENCOUNTER 2025-04-24 16:26 | Outpatient (CLI) | payer OTHER | END 2025-04-24 17:00 | disposition home or self-care (01) | LOC: Rad HDHVI 16:26 | PROVIDERS: ATTEND Internal Medicine Cardiovascular Disease | DX: R60.9 Edema, unspecified (principal) | CPT/HCPCS: 93970 ==